=== PATIENT | male | born 1990 | race African-American/Black ===

== ENCOUNTER 2020-04-09 02:58 | Emergency (ER) | payer SELFPAY ==
[2020-04-09 05:08] LABS: ABSOLUTE EOSINOPHILS # (AUTO) 0.1 10^3/uL (0.0-0.6); ABSOLUTE LYMPHOCYTES (AUTO) 1.5 10^3/uL (0.5-4.7); ABSOLUTE MONOCYTES (AUTO) 0.8 10^3/uL (0.1-1.4); ABSOLUTE NEUT (AUTO) 15.3 10^3/uL (1.7-8.2); BASOPHILS % (AUTO) 0.3 % (0-2); EOSINOPHILS % (AUTO) 0.3 % (0-6); HEMATOCRIT 42.6 % (37.9-51.0); HEMOGLOBIN 13.9 g/dL (13.5-17.0); LYMPHOCYTES % (AUTO) 8.3 % (13-45); MEAN CORPUSCULAR HEMOGLOBIN 26.4 pg (27.0-33.4); MEAN CORPUSCULAR HGB CONC 32.7 g/dL (32.0-36.0); MEAN CORPUSCULAR VOLUME 81 fl (80-97); MONOCYTES % (AUTO) 4.6 % (3-13); PLATELET COUNT 318 10^3/uL (150-450); RED BLOOD COUNT 5.28 10^6/uL (4.35-5.55); RED CELL DISTRIBUTION WIDTH 14.7 % (11.5-14.0); SEGMENTED NEUTROPHILS % (AUTO) 86.5 % (42-78); TOTAL CELLS COUNTED % (AUTO) 100 %; WHITE BLOOD COUNT 17.6 10^3/uL (4.0-10.5)
[2020-04-09 05:28] LABS: ALBUMIN 4.5 g/dL (3.5-5.0); ALKALINE PHOSPHATASE 51 U/L (38-126); ANION GAP 6 (5-19); ASPARTATE AMINO TRANSFERASE 31 U/L (17-59); BILIRUBIN,TOTAL 0.5 mg/dL (0.2-1.3); BLOOD UREA NITROGEN 14 mg/dL (7-20); CALCIUM 9.5 mg/dL (8.4-10.2); CARBON DIOXIDE 30 mmol/L (22-30); CHLORIDE 103 mmol/L (98-107); GLUCOSE 119 mg/dL (75-110); TOTAL PROTEIN 7.5 g/dL (6.3-8.2)
--- NOTE | 2020-04-09 05:52 | RADIOLOGY REPORT (SQ) ---
CT abdomen and pelvis with contrast on 04/09/2020 at 5:11 AM CLINICAL INDICATION: Right lower quadrant pain, vomiting TECHNIQUE: Multiple axial images are obtained throughout the abdomen and pelvis following the administration of IV contrast, 83 mL of Omnipaque 350contrast was administered intravenously without complication. This exam was performed according to our departmental dose-optimization program, which includes automated exposure control, adjustment of the mA and/or kV according to patient size and/or use of iterative reconstruction technique. Total DLP is 559.21 mGy*cm. COMPARISON: None FINDINGS: Abdomen: The lung bases are clear. There is minimal right hydronephrosis and mild right hydroureter to the level of a 3 mm right distal ureteral stone just above the right UVJ seen best on axial image 78 of series 3 and coronal image 32. There is some urothelial thickening of the right ureter related to the obstruction versus possibly infection and please correlate with urinalysis. No CT changes of pyelonephritis are noted. The solid abdominal organs are otherwise unremarkable. There is no abdominal adenopathy. There is no free fluid or free air within the abdomen. The abdominal portion of the GI tract is unremarkable. Pelvis: The cecum is very low lying in the pelvis. Definite appendix is not visualized but no pericecal inflammatory changes are noted. Trace free fluid is noted in the pelvis. There is no pelvic adenopathy. Pelvic portion of the GI tract is otherwise unremarkable. No bony abnormality is noted. IMPRESSION: 1. Minimally obstructing 3 mm right distal ureteral stone. There is also some urothelial thickening of the right ureter that could be related to the obstructing stone versus infection and recommend correlation with urinalysis. 2. Nonvisualization of the appendix therefore not completely excluding appendicitis but no secondary signs to suggest appendicitis are noted.
[2020-04-09] MEDS ORDERED: KETOROLAC TROMETHAMINE INJ/PF 30 MG/1 ML SDV IV ONE (07:33)
--- NOTE | 2020-04-09 07:33 | ER Document Report ---
ED GI/ - General Chief Complaint: Abdominal Pain Stated Complaint: ABDOMINAL PAIN Time Seen by Provider: 04/09/20 06:18 Notes: 30 yom who presents to the ER by EMS with a CC of abdominal pain x2-3 days. Patient reports 5/5 pain which began 2 hours [employer] ASSOC[employer]. Pt reports RLQ pain which radiates to suprapubic region. Patient in wheelchair upon this nurse assessment. Pt denies pain upon urination. Pt denies fever but reports chills. Pt further denies abdominal history. Pt reports nausea without vomiting. Last BM reported to be 1 hour [employer] ASS[employer]. Pt denies medical history. Pt is alert and oriented x4. Patient describes the pain as aching. Denies fever chills night hematuria or dysuria. Positive nausea denies vomiting or diarrhea. Denies chest pain shortness of breath denies any coronavirus symptoms. Sore throat cough runny nose congestion. - Related Data Allergies/Adverse Reactions: No Known Allergies Allergy (Unverified 04/09/20 03:39) Past Medical History - Social History Smoking Status: Current Every Day Smoker Chew tobacco use (# tins/day): No Frequency of alcohol use: None Drug Abuse: None Family History: Reviewed & Not Pertinent Review of Systems - Review of Systems Constitutional: denies: Chills, Fever Cardiovascular: denies: Chest pain, Dyspnea Respiratory: denies: Cough, Short of breath Gastrointestinal: Abdominal pain, Nausea. denies: Diarrhea, Vomiting, Black stools, Rectal bleeding Genitourinary: denies: Dysuria, Hematuria Male Genitourinary: denies: Testicular pain, Penile discharge -: Yes All other systems reviewed and negative Physical Exam - Vital signs Vitals: Temp Pulse Resp BP Pulse Ox 98.3 F 105 H 18 126/83 H 98 04/09/20 03:07 04/09/20 03:07 04/09/20 03:07 04/09/20 03:07 04/09/20 03:07 - Notes Notes: GENERAL_APPEARANCE: well_nourished, alert, cooperative VITALS: reviewed, see vital signs table. HEAD: no_swelling\tenderness on the head. EYES: PERRL, EOMI, conjunctiva_clear. NOSE: no_nasal_discharge. MOUTH: (-)decreased moisture. THROAT: no_tonsilar_inflammation, no_airway_obstruction. no_lymphadenopathy NECK: supple, no_neck_tenderness, (-)thyromegaly. BACK: no_back_tenderness. CHEST_WALL: no_chest_tenderness. LUNGS: no_wheezing, no_rales, no_rhonchi, (-)accessory muscle use, good air exchange bilateral. HEART: normal_rate, normal_rhythm, normal_S1, normal_S2, (-)S3, (-)S4, no_murmur, no_rub. ABDOMEN: normal_BS, soft, right lower quadrant_abd_tenderness, (-)guarding, (- )rebound, no_organomegaly, no_abd_masses. EXTREMITIES: good pulses in all_extremities, no_swelling\tenderness in the extremities, no_edema. SKIN: warm, dry, good_color, no_rash. MENTAL_STATUS: speech_clear, oriented_X_3, normal_affect, responds_ appropriately to questions. NEURO: Neg Motor or Sensory Deficits on exam, CN 2-12 intact, DTR 2+ symmetric x 4, No cerbellar signs Course - Re-evaluation Re-evalutation: 04/09/20 07:33 30-year-old male presents with right lower quadrant abdominal pain. Rovsing sign negative rupture and psoas sign negative. CT does show a 3 mm stone. This is likely the cause of the patient's pain we are waiting his urine to be sure there is no infection. 04/09/20 08:45 CT scan shows a kidney stone. Should pass without difficulty will discharge with Flomax and Toradol. Patient is doing well here no fever no secondary infection urine is clean of the blood. Spoke with the patient at length about kidney stones follow-up with primary care - Vital Signs Vital signs: Temp Pulse Resp BP Pulse Ox 98.3 F 105 H 18 126/83 H 98 04/09/20 03:07 04/09/20 03:07 04/09/20 03:07 04/09/20 03:07 04/09/20 03:07 - Laboratory Result Diagrams: 04/09/20 04:45 04/09/20 04:45 Laboratory results interpreted by me: 04/09/20 04/09/20 04/09/20 04:45 04:45 07:45 WBC 17.6 H MCH 26.4 L RDW 14.7 H Lymph % (Auto) 8.3 L Absolute Neuts (auto) 15.3 H Seg Neutrophils % 86.5 H Glucose 119 H Urine Ketones TRACE H Urine Blood LARGE H Urine Urobilinogen 2.0 H - Diagnostic Test Radiology reviewed: Reports reviewed Radiology results interpreted by me: 04/09/20 08:45 Abdomen/Pelvis CT 04/09/20 00:00 IMPRESSION: 1. Minimally obstructing 3 mm right distal ureteral stone. There is also some urothelial thickening of the right ureter that could be related to the obstructing stone versus infection and recommend correlation with urinalysis. 2. Nonvisualization of the appendix therefore not completely excluding appendicitis but no secondary signs to suggest appendicitis are noted. Discharge - Discharge Clinical Impression: Kidney stone on right side Condition: Good Disposition: HOME, SELF-CARE Instructions: Kidney Stone ([facility]) Prescriptions: Ketorolac Tromethamine [Toradol 10 mg Tablet] 10 mg PO Q6HP PRN #12 tablet PRN Reason: Tamsulosin HCl [Flomax] 0.4 mg PO DAILY #14 cap.er.24h
[2020-04-09 08:23] LABS: APPEARANCE,URINE CLEAR; BILIRUBIN,URINE NEGATIVE (NEGATIVE); COLOR,URINE YELLOW; GLUCOSE, URINE NEGATIVE (NEGATIVE); KETONES,URINE TRACE mg/dL (NEGATIVE); LEUKOCYTE ESTERASE,URINE NEGATIVE (NEGATIVE); NITRITE,URINE NEGATIVE (NEGATIVE); PROTEIN,URINE NEGATIVE (NEGATIVE); URINE SPECIFIC GRAVITY 1.058
[2020-04-09 08:56] VITALS: BP 107/64
== END 2020-04-09 08:54 | disposition home or self-care (01) ==
LOC: ER 02:58
DX: N20.1 Calculus of ureter (principal); R11.0 Nausea; R10.31 Right lower quadrant pain; F17.200 Nicotine dependence, unspecified, uncomplicated
CPT/HCPCS: 99284; 96374; 36415; 83690; 85025; 80053; 81001; 74177; J1885

== ENCOUNTER 2020-04-13 09:35 | Emergency (ER) | payer BC ==
[2020-04-13] MEDS ORDERED: KETOROLAC TROMETHAMINE INJ/PF 30 MG/1 ML SDV IV ONE (10:05)
--- NOTE | 2020-04-13 10:08 | ER Document Report ---
ED Medical Screen (RME) - General Chief Complaint: Flank Pain Stated Complaint: RIGHT FLANK PAIN Time Seen by Provider: 04/13/20 10:03 Mode of Arrival: Ambulatory Information source: Patient Notes: 30-year-old male presented to ED for complaint of right lower quadrant and flank pain. He was diagnosed on Thursday in the ER with kidney stones. He states he is continuing to have bad pain. He states he was told to come back to the emergency room if the pain got worse. He is alert oriented respirations regular nonlabored speaking in full sentences. He states he was not told to follow-up with urology. I have ordered him IV fluids blood urine and Toradol. I have greeted and performed a rapid initial assessment of this patient. A comprehensive ED assessment and evaluation of the patient, analysis of test results and completion of medical decision making process will be conducted by an additional ED providers. - Related Data Allergies/Adverse Reactions: No Known Allergies Allergy (Verified 04/13/20 09:52) Past Medical History - Social History Chew tobacco use (# tins/day): No Drug Abuse: None Physical Exam - Vital signs Vitals: Temp Pulse Resp BP Pulse Ox 98.5 F 73 18 119/78 99 04/13/20 09:39 04/13/20 09:39 04/13/20 09:39 04/13/20 09:39 04/13/20 09:39 Course - Vital Signs Vital signs: Temp Pulse Resp BP Pulse Ox 98.5 F 73 18 119/78 99 04/13/20 09:39 04/13/20 09:39 04/13/20 09:39 04/13/20 09:39 04/13/20 09:39
[2020-04-13] MEDS: NORMAL SALINE 1000 ML 1,000 ML IV PRN ×2 (10:39→11:00)
--- NOTE | 2020-04-13 10:49 | ER Document Report ---
Entered by FIGUEROA ROMAN SCRIBE 04/13/20 1032 Acting as scribe for:PRISCILA OBRIEN MD ED GI/ - General Chief Complaint: Flank Pain Stated Complaint: RIGHT FLANK PAIN Time Seen by Provider: 04/13/20 10:03 Primary Care Provider: [facility] [Provider Group] - Follow up as needed Information source: Patient Notes: This 30 year old male patient presents to the emergency department today with complaints of right lower quadrant abdominal pain. Patient was seen in this emergency department on 04/09 and was diagnosed with a 3 mm right ureteral, minim ally obstructing kidney stone. Patient has had continued pain without fevers or vomiting. - Related Data Allergies/Adverse Reactions: No Known Allergies Allergy (Verified 04/13/20 09:52) Past Medical History - General Information source: Patient - Social History Smoking Status: Current Every Day Smoker Cigarette use (# per day): Yes - 1/4 Chew tobacco use (# tins/day): No Frequency of alcohol use: None Drug Abuse: None Family History: Reviewed & Not Pertinent Patient has homicidal ideation: No Renal/ Medical History: Reports: Hx Kidney Stones - 3mm, dx on 04/09/20 Surgical Hx: Negative Review of Systems - Review of Systems Constitutional: No symptoms reported EENT: No symptoms reported Cardiovascular: No symptoms reported Respiratory: No symptoms reported Gastrointestinal: See HPI, Abdominal pain - RLQ. denies: Nausea, Vomiting Genitourinary: No symptoms reported Male Genitourinary: No symptoms reported Musculoskeletal: No symptoms reported Skin: No symptoms reported Hematologic/Lymphatic: No symptoms reported Neurological/Psychological: No symptoms reported -: Yes All other systems reviewed and negative Physical Exam - Vital signs Vitals: Temp Pulse Resp BP Pulse Ox 98.5 F 73 18 119/78 99 04/13/20 09:39 04/13/20 09:39 04/13/20 09:39 04/13/20 09:39 04/13/20 09:39 - Notes Notes: Physical Exam: General: Alert, appears uncomfortable. HEENT: Normocephalic. Atraumatic. PERRL. Extraocular movements intact. Oropharynx clear. Neck: Supple. Non-tender. Respiratory: No respiratory distress. Clear and equal breath sounds bilaterally. Cardiovascular: Regular rate and rhythm. Abdominal: Hypoactive bowel sounds. Exquisite right lower quadrant tenderness with palpation. Voluntary guarding. Back: No gross abnormalities. Extremities: Moves all four extremities. Upper extremities: Normal inspection. Normal ROM. Lower extremities: Normal inspection. No edema. Normal ROM. Neurological: Normal cognition. AAOx4. Normal speech. Psychological: Normal affect. Normal Mood. Skin: Diaphoretic. Normal color. Course - Re-evaluation Re-evalutation: 04/13/20 13:48 Several re-evaluations. Most recently the patient continue to be guarding but stated he needed to empty his bladder. After he went to the restroom into his bladder he is reevaluated. Eventually was able to get him to relax his abdominal muscle wall in the left lower quadrant was not tender at all. The right lower quadrant was minimally tender. He states it mostly just felt bloated in that area. He does continue to have good bowel sounds. This is most likely still the 3 mm right distal ureteral stone causing his discomfort and his hematuria today. The white blood cell count today is improved compared to 04/09/2020. - Vital Signs Vital signs: Temp Pulse Resp BP Pulse Ox 98.5 F 73 18 119/78 99 04/13/20 09:39 04/13/20 09:39 04/13/20 09:39 04/13/20 09:39 04/13/20 09:39 - Laboratory Result Diagrams: 04/13/20 10:36 04/13/20 10:36 Laboratory results interpreted by me: 04/13/20 04/13/20 04/13/20 10:36 10:36 10:36 WBC 12.7 H MCH 26.6 L RDW 14.8 H Lymph % (Auto) 9.0 L Mccormick % (Auto) 2.6 L Absolute Neuts (auto) 11.2 H Seg Neutrophils % 87.7 H Sodium 134.6 L Urine Ketones 20 H Urine Blood LARGE H Discharge - Discharge Clinical Impression: Kidney stone on right side, Right lower quadrant abdominal pain Hematuria Qualifiers: Hematuria type: unspecified type Qualified Code(s): R31.9 - Hematuria, unspecified Condition: Stable Disposition: HOME, SELF-CARE Additional Instructions: Kidney Stone You are passing a kidney stone. These stones are usually due to increased calcium or uric acid concentrations in your urine. Stones within the kidney itself are not painful. The pain occurs as the stone leaves the kidney to pass down the long tube, called the ureter, leading to the bladder. If the stone is small, it will usually pass by itself. Most patients can pass the stone at home. You will usually receive medications for pain, nausea or vomiting, and sometimes a medication to assist in passing the kidney stone. However, if the pain is very severe or if vomiting prevents you from taking oral pain medications, you may need to return for further treatment. Drink three or four quarts of fluids per day. You will be given pain medication (if needed) and urine strainers. Strain all your urine to see if the stone passes. If your doctor has asked you to bring the stone in for analysis, return with the stone once it has passed. Return if pain or vomiting become severe, if you develop a high fever, if you are unable to pass your urine, or if other unusual symptoms occur. Drink plenty of fluids throughout the day and evening. Continue taking the ketorolac/Toradol and tamsulosin/Flomax as prescribed a few days ago. Take the Percocet as prescribed if needed for pain control. Follow-up with [facility] if not improving--call for an appointment. RETURN TO THE EMERGENCY ROOM IF ANY NEW OR WORSENING SYMPTOMS. Prescriptions: Oxycodone HCl/Acetaminophen [Percocet 5-325 mg Tablet] 1 tab PO ASDIR PRN #15 tablet PRN Reason: Referrals: [facility] [Provider Group] - Follow up as needed I personally performed the services described in the documentation, reviewed and edited the documentation which was dictated to the scribe in my presence, and it accurately records my words and actions.
[2020-04-13 11:06] LABS: ABSOLUTE EOSINOPHILS # (AUTO) 0.1 10^3/uL (0.0-0.6); ABSOLUTE LYMPHOCYTES (AUTO) 1.1 10^3/uL (0.5-4.7); ABSOLUTE MONOCYTES (AUTO) 0.3 10^3/uL (0.1-1.4); ABSOLUTE NEUT (AUTO) 11.2 10^3/uL (1.7-8.2); BASOPHILS % (AUTO) 0.2 % (0-2); EOSINOPHILS % (AUTO) 0.5 % (0-6); HEMATOCRIT 41.5 % (37.9-51.0); HEMOGLOBIN 13.7 g/dL (13.5-17.0); MEAN CORPUSCULAR HEMOGLOBIN 26.6 pg (27.0-33.4); MEAN CORPUSCULAR HGB CONC 32.9 g/dL (32.0-36.0); MEAN CORPUSCULAR VOLUME 81 fl (80-97); MONOCYTES % (AUTO) 2.6 % (3-13); RED BLOOD COUNT 5.14 10^6/uL (4.35-5.55); RED CELL DISTRIBUTION WIDTH 14.8 % (11.5-14.0); SEGMENTED NEUTROPHILS % (AUTO) 87.7 % (42-78); TOTAL CELLS COUNTED % (AUTO) 100 %; WHITE BLOOD COUNT 12.7 10^3/uL (4.0-10.5)
[2020-04-13 11:13] LABS: APPEARANCE,URINE SLIGHTLY-CLOUDY; BILIRUBIN,URINE NEGATIVE (NEGATIVE); COLOR,URINE YELLOW; GLUCOSE, URINE NEGATIVE (NEGATIVE); KETONES,URINE 20 mg/dL (NEGATIVE); LEUKOCYTE ESTERASE,URINE NEGATIVE (NEGATIVE); NITRITE,URINE NEGATIVE (NEGATIVE); PROTEIN,URINE NEGATIVE (NEGATIVE); URINE SPECIFIC GRAVITY 1.015; UROBILINOGEN,URINE NEGATIVE mg/dL (<2.0)
[2020-04-13 11:29] LABS: ALBUMIN 4.6 g/dL (3.5-5.0); ALKALINE PHOSPHATASE 42 U/L (38-126); ANION GAP 7 (5-19); ASPARTATE AMINO TRANSFERASE 34 U/L (17-59); BILIRUBIN,DIRECT 0.1 mg/dL (0.0-0.4); BLOOD UREA NITROGEN 11 mg/dL (7-20); CALCIUM 9.5 mg/dL (8.4-10.2); CARBON DIOXIDE 28 mmol/L (22-30); CHLORIDE 100 mmol/L (98-107); GLUCOSE 87 mg/dL (75-110); POTASSIUM 4.4 mmol/L (3.6-5.0); TOTAL PROTEIN 7.8 g/dL (6.3-8.2)
[2020-04-13 11:45] LABS: PLATELET COUNT 307 10^3/uL (150-450)
[2020-04-13] MEDS ORDERED: ONDANSETRON HCL INJ/PF 4 MG/2 ML SDV IV ONE (12:20)
[2020-04-13] MEDS ORDERED: MORPHINE SULFATE 10 MG/ML INJ IV ONE (12:20)
[2020-04-13 14:07] VITALS: BP 104/64
== END 2020-04-13 14:07 | disposition home or self-care (01) ==
LOC: ER 09:35
DX: N20.0 Calculus of kidney (principal); R31.9 Hematuria, unspecified; R10.31 Right lower quadrant pain; F17.210 Nicotine dependence, cigarettes, uncomplicated
CPT/HCPCS: 99284; 96361; 96374; 96375; 36415; 85025; 80053; 81001; J1885; J2270; J2405; J7030